=== PATIENT | female | born 1980 | race Caucasian/White ===

== ENCOUNTER → 2020-01-30 | Outpatient (CLI) | payer MEDICAID ==
[~2020-01-30] MED LIST: MULT-1116 PO
== END | disposition home or self-care (01) ==
LOC: LAB 08:50
PROVIDERS: ATTEND Obstetrics & Gynecology
DX: Z01.812 Encounter for preprocedural laboratory examination (principal); Z20.828 Contact with and (suspected) exposure to other viral communicable diseases
CPT/HCPCS: C9803; U0003

== ENCOUNTER 2020-02-02 07:53 | Day surgery (SDC) | payer MEDICAID ==
[~2020-02-02] VITALS: Ht 152.4 cm; Wt 44.5 kg
[~2020-02-02 07:53] MED LIST changes: +LACTATED RINGERS 1,000 ML IV SCH
[2020-02-02] MEDS ORDERED: BUPIVACAINE HCL/PF 0.5% (5MG/ML) 10ML ONE (08:17)
[2020-02-02] MEDS ORDERED: SKIN ADHESIVE 0.7 GM EA TOP ONE (08:17)
[2020-02-02] MEDS ORDERED: VASOPRESSIN 20 UNIT/ML 1ML ONE (08:18)
[2020-02-02 08:24] LABS: CLARITY URINE CLEAR (CLEAR); COLOR URINE YELLOW (YELLOW); KETONES URINE NEGATIVE (NEGATIVE); LEUKOCYTE ESTERASE URINE NEGATIVE (NEGATIVE); NITRITE URINE NEGATIVE (NEGATIVE); OCCULT BLOOD URINE NEGATIVE (NEGATIVE); PROTEIN URINE NEGATIVE (NEGATIVE); SPECIFIC GRAVITY URINE 1.022 (1.005-1.030); UROBILINOGEN URINE 0.2 E.U./dL (0.2-1.0)
[2020-02-02 08:26] LABS: UCG SCREEN NEGATIVE
[2020-02-02 08:33] LABS: BASOPHILS % 0.9 % (0.0-2.0); EOSINOPHILS % 5.6 % (0.0-5.0); HEMATOCRIT. 39.3 % (36.0-48.0); HEMOGLOBIN. 13.4 g/dL (12.0-16.0); MEAN CORPUSCULAR HEMOGLOBIN 32.1 pg (28.0-32.0); MEAN CORPUSCULAR VOLUME 94.3 fL (81.0-99.0); MEAN PLATELET VOLUME 9.7 fl (7.4-10.4); MONOCYTES % 7.7 % (2.0-8.0); NEUTROPHILS % 58.8 % (40.0-76.0); PLATELET 176 x1000/uL (130-400); RED BLOOD CELL COUNT 4.17 mill/uL (4.2-5.4); RED CELL DISTRIBUTION WIDTH 13.1 % (11.6-14.6)
[2020-02-02 08:35] LABS: CHLORIDE 107 mEq/L (98-107)
[2020-02-02 08:40] LABS: INR 0.9; PROTHROMBIN TIME 9.8 sec (9.6-11.0)
[2020-02-02] MEDS ORDERED: FENTANYL CITRATE/PF 50MCG/ML 2ML VIAL ONE ×4 (10:52→13:37)
[2020-02-02] MEDS ORDERED: PROPOFOL 200MG/20ML VIAL IV ONE ×2 (10:52→14:02)
[2020-02-02] MEDS ORDERED: ROCURONIUM BROMIDE 10MG/ML VIAL 5ML IV ONE ×2 (10:52→11:42)
[2020-02-02] MEDS ORDERED: NEOSTIGMINE METHYLSULFATE 1MG/ML 10 ML VIAL ONE (10:52)
[2020-02-02] MEDS ORDERED: MIDAZOLAM HCL 2 MG/2 ML VIAL ONE (10:52)
[2020-02-02] MEDS ORDERED: ONDANSETRON HCL 4MG/2ML INJ ONE (10:53)
[2020-02-02] MEDS ORDERED: LIDOCAINE HCL/PF 1% 10 MG/ML 5ML VIAL ONE (10:53)
[2020-02-02] MEDS ORDERED: METOCLOPRAMIDE HCL 10MG/2ML VIAL ONE (10:53)
[2020-02-02] MEDS ORDERED: GLYCOPYRROLATE 0.2 MG/ML 2ML VIAL ONE (10:53)
[2020-02-02] MEDS ORDERED: SUCCINYLCHOLINE CHLORIDE 200MG/10ML IV ONE (10:53)
[2020-02-02] MEDS ORDERED: CEFAZOLIN SODIUM 1000MG/VIAL ONE (10:53)
[2020-02-02] MEDS ORDERED: SODIUM CHLORIDE 0.9% 10ML VIAL ONE (10:53)
[2020-02-02] MEDS ORDERED: METRONIDAZOLE 500 MG PREMIX 100 ML IV ONE (14:32)
[2020-02-02] MEDS ORDERED: SODIUM CHLORIDE 0.9% 1,000 ML IV ONE (15:00)
[2020-02-02] MEDS ORDERED: MEPERIDINE HCL/PF 25MG/ML CPJ IV PRN ×2 (15:00)
[2020-02-02] MEDS ORDERED: ONDANSETRON HCL 4MG/2ML INJ IV PRN (15:00)
[2020-02-02] MEDS ORDERED: MORPHINE SULFATE 2 MG/ML CPJ (NOT FOR IM USE) IV PRN (15:00)
[2020-02-02] MEDS: HYDROMORPHONE HCL/PF 2MG/ML CPJ IV PRN ×2 (15:40→15:50)
[2020-02-02 15:50] VITALS: BP 118/69
== END 2020-02-02 17:05 | disposition home or self-care (01) ==
LOC: OR 07:53
PROVIDERS: ATTEND Obstetrics & Gynecology
DX: D25.9 Leiomyoma of uterus, unspecified (principal); N92.0 Excessive and frequent menstruation with regular cycle; R10.2 Pelvic and perineal pain; Z79.899 Other long term (current) drug therapy; Z98.890 Other specified postprocedural states
CPT/HCPCS: 36415; 58546; 80048; 81003; 81025; 85025; 85610; 85730; 86850; 86900; 86901; 88305; J0330; J0690; J1170; J2250; J2405; J2704; J2765; J3010; J3490; J7030; S2900; J2710